=== PATIENT | male | born 1970 | race Caucasian/White ===

== ENCOUNTER 2023-11-30 15:03 | Inpatient (IN) | payer OTHER ==
[2023-11-30] MEDS ORDERED: HEPARIN SODIUM 1,000 UN/ML (10ML VL) IV PRN (15:41)
--- NOTE | 2023-11-30 15:49 | ED ---
SOB HPI - General Chief Complaint: Shortness of Breath Stated Complaint: Sepsis Time Seen by Provider: 11/30/23 15:03 Source: patient, RN notes reviewed Mode of arrival: EMS Limitations: no limitations - History of Present Illness Initial Comments: 53-year-old male transferred here from [facility] he states he initially was diagnosed with influenza 2 days ago came back to the ER today because of shortness of breath and nausea and vomiting and he wasn't feeling well. The symptoms started 6 days ago. Today he was diagnosed with pneumonia a nd a pulmonary embolus. He was brought to emergency department by the transfer ambulance he did have IV heparin running. He states he felt much improved after he was treated with nebulizer treatment at the other facility as well as placed on oxygen. He is reported to have a low oxygen level prior to the treatment. He is a former smoker no reported history of being diagnosed with COPD or asthma . He denies any overt chest pain at this time other complaints modifying factors MD Complaint: shortness of breath Review of Systems ROS Statement: Those systems with pertinent positive or pertinent negative responses have been documented in the HPI. ROS Other: All systems not noted in ROS Statement are negative. Past Medical History Past Medical History: Pneumonia Additional Past Medical History / Comment(s): Influenza A, Covid, History of Any Multi-Drug Resistant Organisms: None Reported Past Surgical History: Hernia Repair Past Psychological History: No Psychological Hx Reported Smoking Status: Former smoker Past Alcohol Use History: Occasional Past Drug Use History: None Reported General Exam - General Exam Comments Initial Comments: This is a well-developed well-nourished awake alert oriented 4 male. He does have oxygen being given at this time. Limitations: no limitations General appearance: alert, in no apparent distress Head exam: Present: atraumatic, normocephalic, normal inspection Eye exam: Present: normal appearance, PERRL, EOMI. Absent: scleral icterus, conjunctival injection, periorbital swelling ENT exam: Present: normal exam, mucous membranes moist Neck exam: Present: normal inspection, full ROM, other. Absent: tenderness, meningismus, lymphadenopathy Respiratory exam: Present: decreased breath sounds (No stridor JVD or bruits), other (Scattered basilar crepitus). Absent: respiratory distress, wheezes, ra les, rhonchi, stridor Cardiovascular Exam: Present: regular rate, normal rhythm, normal heart sounds. Absent: systolic murmur, diastolic murmur, rubs, gallop, clicks GI/Abdominal exam: Present: soft, normal bowel sounds. Absent: distended, tenderness, guarding, rebound, rigid Extremities exam: Present: normal inspection, full ROM, normal capillary refill. Absent: tenderness, pedal edema, joint swelling, calf tenderness Back exam: Present: normal inspection Neurological exam: Present: alert, oriented X3, CN II-XII intact Psychiatric exam: Present: normal affect, normal mood Skin exam: Present: warm, dry, intact, normal color. Absent: rash Course Vital Signs 11/30/23 11/30/23 15:22 15:31 Temperature 98.8 F Pulse Rate 99 Respiratory 18 18 Rate Blood Pressure 130/84 O2 Sat by Pulse 99 Oximetry Medical Decision Making - Medical Decision Making I did review the materials were accompanying the patient upon his arrival. A bloated. Did discuss the case with Taya Brito covering for Dr. Barone the patient will be admitted for inpatient evaluation and treatment bronchospasm hypoxemia pulmonary embolus was a long with pneumonia. A Cephid test is pending at this time.Was pt. sent in by a medical professional or institution (, PA, SENIOR ANDROID SOFTWARE ENGINEER, urgent care, hospital, or shelter...) When possible be specific @ -No Did you speak to anyone other than the patient for history (EMS, parent, family, police, friend...)? What history was obtained from this source @ -Review of old charts sent with the patient Did you review nursing and triage notes (agree or disagree)? Why? @ -I reviewed and agree with nursing and triage notes Were old charts reviewed (outside hosp., previous admission, EMS record, old EKG, old radiological studies, urgent care reports/EKG's, shelter records)? Report findings @ -Charting from [facility] old charts were reviewed Differential Diagnosis (chest pain, altered mental status, abdominal pain women, abdominal pain men, vaginal bleeding, weakness, fever, dyspnea, syncope, headache, dizziness, GI bleed, back pain, seizure, CVA, palpatations, mental health, musculoskeletal)? @ -Pulmonary embolism, bronchospasm, pneumonia, influenza] EKG interpreted by me (3pts min.). @ -As above EKG sent with the patient interpreted by me normal sinus rhythm she is to QA changes rate was 112. Interval 146. QT 318 QTC H49 QRS D 90 6 PMQRS and T 35/49/1 X-rays interpreted by me (1pt min.). @ -Reviewed from other facility CT interpreted by me (1pt min.). @ -Reviewed from other facility U/S interpreted by me (1pt. min.). @ -None done What testing was considered but not performed or refused? (CT, X-rays, U/S, labs)? Why? @ -None What meds were considered but not given or refused? Why? @ -None Did you discuss the management of the patient with other professionals (professionals i.e. DrDominique, PA, SENIOR ANDROID SOFTWARE ENGINEER, lab, RT, psych nurse, manager social work, abrasive band winder, teacher, welfare officer, block and case maker)? Give summary @ -Taya Brito covering for Dr. Barone Was smoking cessation discussed for >3mins.? @ -No Was critical care preformed (if so, how long)? @ -No Were there social determinants of health that impacted care today? How? (Homelessness, low income, unemployed, alcoholism, drug addiction, transportation, low edu. Level, literacy, decrease access to med. care, half-way, rehab)? @ -No Was there de-escalation of care discussed even if they declined (Discuss DNR or withdrawal of care, Hospice)? DNR status @ -No What co-morbidities impacted this encounter? (DM, HTN, Smoking, COPD, CAD, Cancer, CVA, ARF, Chemo, Hep., AIDS, mental health diagnosis, sleep apnea, morbid obesity)? @ -History of Rivera's esophagus, history of colonic polyps, former smoker, recent diagnosis of influenza Was patient admitted / discharged? Hospital course, mention meds given and route, prescriptions, significant lab abnormalities, going to OR and other pertinent info. @ -hospital course patient was admitted for inpatient evaluation and treatment Undiagnosed new problem with uncertain prognosis? @ -No Drug Therapy requiring intensive monitoring for toxicity (Heparin, Nitro, Insulin, Cardizem)? @ -No Were any procedures done? @ -No Diagnosis/symptom? @ -Acute bronchospasm, acute pneumonia, influenza, acute pulmonary embolism, nausea vomiting Acute, or Chronic, or Acute on Chronic? @ -Acute Uncomplicated (without systemic symptoms) or Complicated (systemic symptoms)? @ -default Side effects of treatment? @ -No Exacerbation, Progression, or Severe Exacerbation? @ -Progression Poses a threat to life or bodily function? How? (Chest pain, [place], [place], pneumonia, PE, COPD, DKA, ARF, appy, cholecystitis, CVA, Diverticulitis, Homicidal, Suicidal, threat to staff... and all critical care pts) @ -Potential, PE, acute bronchospasm. Influenza with pneumonia Disposition Clinical Impression: Acute pulmonary embolus, Acute bronchospasm, Pneumonia, Influenza, Nausea & vomiting, Hypoxemia Disposition: ADMITTED IP TO THIS HOSP Condition: Fair Referrals: Augustin Andersen MD [Primary Care Provider] - 1-2 days Decision Date: 11/30/23 Decision Time: 16:16
[2023-11-30] MEDS ORDERED: NALOXONE 0.4 MG/ML 1 ML VIAL IV PRN (16:16)
[2023-11-30] MEDS: HEPARIN SOD,PORK IN 0.45% NACL 25,000 UNIT in 0.45% NACL 1 250ML.BAG IV SCH (16:34)
[2023-11-30 17:29] LABS: Partial Thromboplastin Time 30.2 sec (22.0-30.0); Prothrombin Time 10.5 sec (10.0-12.5)
[2023-11-30] MEDS: SODIUM CHLORIDE 0.9% 1,000 ML IV SCH (17:35)
[2023-11-30] MEDS: ONDANSETRON 4 MG/2 ML VIAL IVP PRN (18:50)
[2023-11-30] MEDS: ACETAMINOPHEN TAB 325 MG TAB PO PRN (18:55)
[2023-11-30] MEDS: IPRATROPIUM-ALBUTEROL 3 ML NEB INHALATION SCH (20:45)
[2023-12-01] MEDS: IPRATROPIUM-ALBUTEROL 3 ML NEB INHALATION SCH ×4 (01:06→18:07)
[2023-12-01] MEDS: SODIUM CHLORIDE 0.9% 1,000 ML IV SCH ×3 (04:45→20:59)
[2023-12-01] MEDS: ONDANSETRON 4 MG/2 ML VIAL IVP PRN ×2 (06:38→14:02)
[2023-12-01] MEDS: ACETAMINOPHEN TAB 325 MG TAB PO PRN ×2 (06:38→14:01)
[2023-12-01] MEDS: HEPARIN SOD,PORK IN 0.45% NACL 25,000 UNIT in 0.45% NACL 1 250ML.BAG IV SCH (08:27)
[2023-12-01] MEDS: PANTOPRAZOLE 40 MG/10 ML VIAL IV SCH (08:27)
--- NOTE | 2023-12-01 15:55 | P.CNPUL ---
History of Present Illness Consult date: 12/01/23 Requesting physician: Yeny Barone Reason for consult: dyspnea, cough, hypoxemia, pulmonary embolism, abnormal CXR/CT Chief complaint: Shortness of breath. History of present illness: Pulmonary consult dated 12/01/2023. 53-year-old male transferred from [facility] with a diagnosis of influenza, diagnosed a few days ago, as well as increasing and worsening shortness of breath, nausea, and vomiting. The patient had symptoms for more than a week, and more recently was diagnosed with possible pneumonia, and pulmonary embolism. He was brought to the emergency department, via transfer ambulance, with IV heparin running. The patient apparently received some breathing treatments at the other hospital, prior to coming to [facility]. Currently, the patient is doing well. He seen today in room 377. He continues on oxygen at 4 L. He is getting saline at 75 mL an hour, and an IV heparin drip. The patient apparently does not have any major medical problem. The patient is a former smoker. He denies any major medical problems. No trauma or surgery. No recent trips or travel. It appears that the pulmonary embolism is likely unprovoked. Home medications were none. Laboratory data here includes a PT of 10.5, INR 1, PTT of 45.4, lactic acid of 1, and his influenza screen was positive. He been having influenza/flulike symptoms for more than a week. EKG showed a sinus tachycardia. The patient apparently had a CT angiogram at the outside facility. Review of Systems REVIEW OF SYSTEMS: CONSTITUTIONAL: Weakness. NEUROLOGIC: [ Negative.] HEENT: [ Negative.] CARDIAC: [Negative.] PULMONARY: Shortness of breath, and cough. GI: Nausea vomiting. : [Negative.] RHEUMATOLOGIC: [ Negative.] IMMUNOLOGIC: [ Negative.] ENDOCRINE: [Negative. ] DERMATOLOGIC: [Negative.] Past Medical History Past Medical History: Pneumonia Additional Past Medical History / Comment(s): Influenza A, Covid, History of Any Multi-Drug Resistant Organisms: None Reported Past Surgical History: Hernia Repair Past Anesthesia/Blood Transfusion Reactions: No Reported Reaction Past Psychological History: No Psychological Hx Reported Smoking Status: Former smoker Past Alcohol Use History: Occasional Past Drug Use History: None Reported Medications and Allergies Home Medications Medication Instructions Recorded Confirmed Type Ibuprofen [Motrin Ib] 800 mg PO Q6H PRN 11/30/23 11/30/23 History Ondansetron Odt [Zofran Odt] 4 mg PO Q8H PRN 11/30/23 11/30/23 History Apixaban [Eliquis Starter Pack 5 - 10 mg PO DIRECTED 30 Days 12/01/23 Rx (for VTE)] #1 each Allergies Allergy/AdvReac Type Severity Reaction Status Date / Time No Known Allergies Allergy Verified 11/30/23 17:41 Physical Exam Osteopathic Statement: *. No significant issues noted on an osteopathic structural exam other than those noted in the History and Physical/Consult. Vitals: Vital Signs Temp Pulse Pulse Resp BP BP Pulse Ox 12/01/23 12:05 84 12/01/23 11:54 85 20 115/68 95 12/01/23 11:48 84 12/01/23 08:00 98.4 F 84 20 110/65 95 12/01/23 05:17 94 12/01/23 05:05 84 12/01/23 03:39 98.3 F 93 18 115/66 96 12/01/23 02:00 20 12/01/23 01:20 82 12/01/23 01:08 80 12/01/23 00:00 98.4 F 66 20 122/79 97 11/30/23 21:17 98 F 96 22 120/72 96 11/30/23 20:56 95 11/30/23 20:52 98 11/30/23 20:45 86 11/30/23 19:05 98 24 122/79 97 11/30/23 18:12 98 18 130/79 98 Intake and Output 12/01/23 12/01/23 12/01/23 06:59 14:59 22:59 Intake Total 401.763 Balance 401.763 Intake: Intake, IV Titration 221.763 Amount Heparin Sod,Pork in 0.45% 221.763 NaCl 25,000 unit In 0.45 % NaCl 1 250ml.bag @ 18 UNITS/KG/HR 13.962 mls/hr IV .[id number] [facility] Rx#: [id number] Oral 180 Other: Voiding Method Toilet Urinal # Voids 1 No acute distress, oriented 3. Nasal O2 in place. No audible wheezing, conversational dyspnea, or use of accessory muscles. HEENT examination is grossly unremarkable. Mucous membranes are moist. No oral lesions. Neck supple. Full range of motion. No adenopathy thyromegaly or neck vein distention. Cardiovascular examination reveals regular rhythm rate. S1-S2 normal. No S3 or S4. No discernible murmur noted. Heart rate 84 bpm. Lungs reveal mild scattered rhonchi. Minimal crackles. No wheezes. 4 L saturation is 95%. Abdomen soft bowel sounds are heard. No masses or tenderness. Extremities are intact. No cyanosis clubbing or edema. Skin is without rash or lesion. Neurologic examination is brief but nonfocal. Results - Laboratory Findings PT/INR, D-dimer PT 10.5 sec (10.0-12.5) 11/30/23 16:31 INR 1.0 (<1.2) 11/30/23 16:31 Abnormal lab findings: Abnormal Labs 11/30/23 11/30/23 11/30/23 16:31 16:31 21:42 APTT 30.2 H 45.4 H Influenza Type A (PCR) Detected A 12/01/23 07:10 APTT 44.4 H Influenza Type A (PCR) Assessment and Plan Assessment: Recent diagnosis of pulmonary embolism, unprovoked. Relatively recent diagnosis of influenza. Prior history of tobacco use. Plan: Plan dated 12/01/2023. Currently, the patient is receiving IV heparin, and saline at 75 mL an hour. The patient's also getting oxygen at 4 L. No need to start Tamiflu, as the patient has had symptoms for a number of days now, and he is beyond the window, to initiate Tamiflu therapy. The patient's also receiving breathing treatments which are reasonable. We will continue to follow make recommendations along the way. Prognosis is guarded. Likely a day or so, the patient can be started on a factor X a inhibitor. Because this is an unprovoked blood clot, the patient should be treated for 6 months. No additional recommendations are made. We will need a follow-up CT angiogram in about 8-10 weeks. Prognosis is thought to be generally good. Time with Patient: Greater than 30
[2023-12-01] MEDS ORDERED: ALBUTEROL NEBULIZED 2.5 MG/3 ML INHALATION PRN (15:58)
--- NOTE | 2023-12-01 16:00 | P.HPIM ---
History of Present Illness H&P Date: 12/01/23 This is a 53 year old male who presented to the emergency department as a transfer from [facility] in [place] for being positive for influenza and also found to have a right lobe pulmonary embolism and was sent here on heparin for further pulmonary evaluation. Patient reports he follows with Dr. Andersen out of [place] with no significant past medical history other than being a former smoker at least 5-6 years ago and had Covid 2 years ago. Patient was placed on oxygen with hypoxia at the other facility and sent here for further evaluation. Patient reports not eating very much and has been progressively becoming more weak and experiencing shortness of breath which brought him back to the ER. Will consult pulmonary as there were also concerns for possible pneumonia while at the other hospital and was given a dose of antibiotics empirically. 2-D echo was ordered and pending. Patient with significant weakness will have physical therapy evaluate the patient as well. Review Of Systems: Constitutional: No fever, no chills, no night sweats. No weight change. Reports of generalized weakness, fatigue or lethargy. No daytime sleepiness. EENT: No headache. No blurred vision or double vision, no loss of vision. No loss of Hearing, no ringing in the ears, no dizziness. No nasal drainage or congestion. No epistaxis. No sore throat. Lungs:Reports of shortness of breath, cough, no sputum production. No wheezing. Cardiovascular: No chest pain, no lower extremity edema. No palpitations. No paroxysmal nocturnal dyspnea. No orthopnea. No lightheadedness or dizziness. No syncopal episodes. Abdominal: No abdominal pain. No nausea, vomiting. No diarrhea. No constipation. No bloody or tarry stools.. No loss of appetite. Genitourinary: No dysuria, increased frequency, urgency. No urinary retention. Musculoskeletal: No myalgias. No muscle weakness, no gait dysfunction, no frequent falls. No back pain. No neck pain. Integumentary: No wounds, no lesions. No rash or pruritus. No unusual bruising. No change in hair or nails. Neurologic: No aphasia. No facial droop. No change in mentation. No head injury. No headache. No paralysis. No paresthesia. Psychiatric: No depression. No anxiety. No mood swings. Endocrine: No abnormal blood sugars. No weight change. No excessive sweating or thirst. No cold intolerance. PHYSICAL EXAMINATION: GENERAL: The patient is alert and oriented x4, Well developed, well nourished. HEENT: Pupils are round and equally reacting to light. EOMI. no scleral icterus. No conjunctival pallor. Normocephalic, atraumatic. No pharyngeal erythema. No thyromegaly. CARDIOVASCULAR: S1 and S2 muffled PULMONARY: diminished breath sounds bilaterally otherwise clear to auscultation with no wheezing or rhonchi noted. ABDOMEN: soft. Nontender on exam. non-distended, normoactive bowel sounds. No palpable organomegaly. MUSCULOSKELETAL: No joint swelling or deformity. EXTREMITIES: No cyanosis, clubbing, or pedal edema. NEUROLOGICAL: Gross neurological examination did not reveal any focal deficits. Diffuse weakness SKIN: No rashes. Assessment: Shortness of breath with acute hypoxemic respiratory failure, multifactorial secondary to new onset pulmonary embolism in the right lobe as well as influenza A infection Acute influenza A infection Former smoker GI prophylaxis DVT prophylaxis Full code Plan: Recommend to continue with current medications and management along with supportive care. Patient was transferred from another facility in [place] on IV heparin for acute right lower lobe pulmonary embolism that is new Patient also found to have acute influenza infection 2 days prior and was in the ER received IV hydration reported feeling better and was sent home. Patient returned back with increased shortness of breath and feeling unwell along with hypoxia requiring 2-4 L of oxygen Patient does not wear any oxygen outpatient does not have any significant medical history. Patient reports to smoking although quit over 5 years ago Patient is not vaccinated and reports to having no significant medical problems Will consult pulmonary as there was concern for possible pneumonia at the other hospital and awaiting records to upload Will obtain 2-D echo Follow-up labs in a.m. Patient with significant weakness will have PT/OT therapy evaluate the patient Follow-up chest x-ray ordered for a.m. Wean FiO2 as tolerated Will also encourage incentive spirometer use at least 10 times every hour while awake The impression and plan of care has been dictated by Taya Singletary, nurse practitioner as directed. Dr. Fela MD I have performed a history and examination and MDM of this patient, discussed the same with the dictator, and agree with the dictator's assessment and plan as written ,documented as a scribe. Based on total visit time, I have performed more than 50% of the visit. Any additional findings or plans will be noted. Past Medical History Past Medical History: Pneumonia Additional Past Medical History / Comment(s): Influenza A, Covid, History of Any Multi-Drug Resistant Organisms: None Reported Past Surgical History: Hernia Repair Past Anesthesia/Blood Transfusion Reactions: No Reported Reaction Past Psychological History: No Psychological Hx Reported Smoking Status: Former smoker Past Alcohol Use History: Occasional Past Drug Use History: None Reported Medications and Allergies Home Medications Medication Instructions Recorded Confirmed Type Ibuprofen [Motrin Ib] 800 mg PO Q6H PRN 11/30/23 11/30/23 History Ondansetron Odt [Zofran Odt] 4 mg PO Q8H PRN 11/30/23 11/30/23 History Apixaban [Eliquis Starter Pack 5 - 10 mg PO DIRECTED 30 Days 12/01/23 Rx (for VTE)] #1 each Allergies Allergy/AdvReac Type Severity Reaction Status Date / Time No Known Allergies Allergy Verified 11/30/23 17:41 Physical Exam Vitals: Vital Signs Temp Pulse Pulse Resp BP BP Pulse Ox 12/01/23 05:17 94 12/01/23 05:05 84 12/01/23 03:39 98.3 F 93 18 115/66 96 12/01/23 02:00 20 12/01/23 01:20 82 12/01/23 01:08 80 12/01/23 00:00 98.4 F 66 20 122/79 97 11/30/23 21:17 98 F 96 22 120/72 96 11/30/23 20:56 95 11/30/23 20:52 98 11/30/23 20:45 86 11/30/23 19:05 98 24 122/79 97 11/30/23 18:12 98 18 130/79 98 11/30/23 15:31 18 11/30/23 15:22 98.8 F 99 18 130/84 99 Intake and Output 11/30/23 12/01/23 12/01/23 22:59 06:59 14:59 Intake Total 401.763 Balance 401.763 Intake: Intake, IV Titration 221.763 Amount Heparin Sod,Pork in 0.45% 221.763 NaCl 25,000 unit In 0.45 % NaCl 1 250ml.bag @ 18 UNITS/KG/HR 13.962 mls/hr IV .[id number] [facility] Rx#: [id number] Oral 180 Other: # Voids 1 Weight 77.564 kg Results Labs: Abnormal Lab Results - Last 24 Hours (Table) 11/30/23 11/30/23 11/30/23 Range/Units 16:31 16:31 21:42 APTT 30.2 H 45.4 H (22.0-30.0) sec Influenza Type A (PCR) Detected A (Not Detectd) 12/01/23 Range/Units 07:10 APTT 44.4 H (22.0-30.0) sec Influenza Type A (PCR) (Not Detectd) Thrombosis Risk Factor Assmnt - DVT/VTE Prophylaxis DVT/VTE Prophylaxis: Mechanical Prophylaxis ordered - Choose All That Apply Any of the Below Risk Factors Present?: Yes Each Factor Represents 1 point: Age 41-60 years Each Risk Factor Represents 3 Points: History of DVT/PE Thrombosis Risk Factor Assessment Total Risk Factor Score: 4 Thrombosis Risk Factor Assessment Level: Moderate Risk Assessment and Plan Time with Patient: Greater than 30
--- NOTE | 2023-12-01 17:08 | CA ---
Transthoracic Echo Report Name: Orlin Aleger Age: 53 Gender: M : 1970 Exam Date: 12/01/2023 15:09 Exam Location: [place] [facility] Ht (in): 70 Wt (lb): 171 Ordering Physician: Taya Singletary Attending/Referring Phys: [place] Luisa Watson RDCS Procedure CPT: Indications: NEW PE, SOB Cardiac Hx: Technical Quality: Good Contrast 1: Total Dose (mL): Contrast 2: Total Dose (mL): MEASUREMENTS (Male / Female) Normal Values 2D ECHO LV Diastolic Diameter PLAX 5.0 cm 4.2 - 5.9 / 3.9 - 5.3 cm LV Systolic Diameter PLAX 3.5 cm IVS Diastolic Thickness 0.9 cm 0.6 - 1.0 / 0.6 - 0.9 cm LVPW Diastolic Thickness 0.9 cm 0.6 - 1.0 / 0.6 - 0.9 cm LV Relative Wall Thickness 0.3 RV Internal Dim ED PLAX 3.9 cm LA Systolic Diameter LX 4.2 cm 3.0 - 4.0 / 2.7 - 3.8 cm LV Diastolic Volume MOD 4C 132.3 cm??? LV Systolic Volume MOD 4C 52.9 cm??? LV Ejection Fraction MOD 4C 60.0 % LV Cardiac Index MOD 4C 3113.6 cm???/min???m??? LV Diastolic Length 4C 8.3 cm LV Systolic Length 4C 6.5 cm LV Diastolic Volume MOD 2C 124.9 cm??? LV Systolic Volume MOD 2C 47.1 cm??? LV Ejection Fraction MOD 2C 62.3 % LV Cardiac Index MOD 2C 3052.8 cm???/min???m??? LV Diastolic Length 2C 8.2 cm LV Systolic Length 2C 6.8 cm LA Volume 95.0 cm??? 18 - 58 / 22 - 52 cm??? LA Volume Index 48.4 cm???/m??? 16 - 28 cm???/m??? M-MODE Aortic Root Diameter MM 4.1 cm AV Cusp Separation MM 3.0 cm DOPPLER AV Peak Velocity 121.5 cm/s AV Peak Gradient 5.9 mmHg MV Area PHT 3.7 cm??? Mitral E Point Velocity 99.8 cm/s Mitral A Point Velocity 56.2 cm/s Mitral E to A Ratio 1.8 MV Deceleration Time 206.6 ms MV E' Velocity 12.4 cm/s Mitral E to MV E' Ratio 8.1 TR Peak Velocity 255.2 cm/s TR Peak Gradient 26.1 mmHg Right Ventricular Systolic Press 31.1 mmHg FINDINGS Left Ventricle Left ventricular ejection fraction is estimated at 55-60 %. Left ventricular cavity size normal. Left ventricular wall thickness normal. Right Ventricle Right ventricular dilatation. Right ventricular systolic pressure within normal limits. Right Atrium Right atrial dilatation. Left Atrium Mildly increased left atrial diameter. Severely increased left atrial volume. Mildly increased left atrial area. Mitral Valve Structurally normal mitral valve. Mild mitral regurgitation. Aortic Valve Trileaflet aortic valve. No aortic valve stenosis or regurgitation. Tricuspid Valve Structurally normal tricuspid valve. Mild tricuspid regurgitation. Pulmonic Valve Structurally normal pulmonic valve. No pulmonic regurgitation. Pericardium No pericardial effusion. Aorta Moderate aortic dilatation at the level of the sinuses of valsalva 41 mm CONCLUSIONS Normal LV function Mild mitral regurgitation Mildly dilated aortic root Previewed by: Dr. Ignacio Thurman MD (Electronically Signed) Final Date: 01 December 2023 17:08
[2023-12-02] MEDS: HEPARIN SOD,PORK IN 0.45% NACL 25,000 UNIT in 0.45% NACL 1 250ML.BAG IV SCH (00:42)
[2023-12-02] MEDS: ONDANSETRON 4 MG/2 ML VIAL IVP PRN ×2 (04:46→10:53)
[2023-12-02] MEDS: IPRATROPIUM-ALBUTEROL 3 ML NEB INHALATION SCH ×4 (08:55→20:53)
[2023-12-02] MEDS: SODIUM CHLORIDE 0.9% 1,000 ML IV SCH (09:04)
[2023-12-02] MEDS: PANTOPRAZOLE 40 MG/10 ML VIAL IV SCH (09:04)
[2023-12-02 09:27] VITALS: RESP 20
[2023-12-02 09:45] LABS: Basophils # (A) 0.1 k/uL (0-0.2); Basophils % (A) 0 %; Eosinophils % (A) 0 %; HCT 38.8 % (39.0-53.0); HGB 12.7 gm/dL (13.0-17.5); Lymphocytes # (A) 1.9 k/uL (1.0-4.8); Lymphocytes % (A) 17 %; MCH 30.7 pg (25.0-35.0); MCHC 32.6 g/dL (31.0-37.0); MCV 94.1 fL (80.0-100.0); Mean Platelet Volume 8.2; Monocytes # (A) 0.6 k/uL (0-1.0); Monocytes % (A) 5 %; Neutrophils # (A) 8.2 k/uL (1.3-7.7); Neutrophils % (A) 74 %; Platelet Count 296 k/uL (150-450); RBC 4.12 m/uL (4.30-5.90)
[2023-12-02 09:54] LABS: African American GFR (CKD) >90 (>60 ml/min/1.73 sqM); Anion Gap 12 mmol/L; Blood Urea Nitrogen 10 mg/dL (9-20); Calcium 8.3 mg/dL (8.4-10.2); Carbon Dioxide 19 mmol/L (22-30); Chloride 107 mmol/L (98-107); Glucose 103 mg/dL (74-99); Magnesium 2.1 mg/dL (1.6-2.3); Non-African American GFR(CKD) >90 (>60 ml/min/1.73 sqM); Potassium 3.8 mmol/L (3.5-5.1); Sodium 138 mmol/L (137-145)
[2023-12-02] MEDS: Apixaban Initiation Dose--VTE 5 MG TAB PO SCH ×2 (09:57→20:35)
--- NOTE | 2023-12-02 12:33 | XR ---
EXAMINATION TYPE: XR chest 1V portable DATE OF EXAM: 12/02/2023 Comparison: 11/30/2023 Clinical History: 53-year-old male shortness of breath, flu, PE Findings: Heart upper limits are normal in size. Patchy interstitial densities bilaterally persist and show sli ght worsening. Calcified right hilar lymph nodes compatible with prior granulomatous disease. Calcifi ed granuloma right midlung. Mild hyperinflation. Impression: Slight worsening in bilateral COVID infiltrates/atypical pneumonias. COPD with mild emphysema.
[2023-12-02] MEDS ORDERED: METOCLOPRAMIDE 5 MG/ML 2 ML VIAL IVP PRN (13:20)
[2023-12-02] MEDS: DEXAMETHASONE SOD PHOSPHATE 10 MG/ML 1 ML VIAL IVP SCH (13:22)
--- NOTE | 2023-12-02 13:58 | P.PN ---
Subjective Progress Note Date: 12/02/23 Principal diagnosis: Shortness of breath, and weakness. Pulmonary consult dated 12/01/2023. 53-year-old male transferred from [facility] with a diagnosis of influenza, diagnosed a few days ago, as well as increasing and worsening shortness of breath, nausea, and vomiting. The patient had symptoms for more than a week, and more recently was diagnosed with possible pneumonia, and pulmonary embolism. He was brought to the emergency department, via transfer ambulance, with IV heparin running. The patient apparently received some breathing treatments at the other hospital, prior to coming to [facility]. Currently, the patient is doing well. He seen today in room 377. He continues on oxygen at 4 L. He is getting saline at 75 mL an hour, and an IV heparin d rip. The patient apparently does not have any major medical problem. The patient is a former smoker. He denies any major medical problems. No trauma or surgery. No recent trips or travel. It appears that the pulmonary embolism is likely unprovoked. Home medications were none. Laboratory data here includes a PT of 10.5, INR 1, PTT of 45.4, lactic acid of 1, and his influenza screen was positive. He been having influenza/flulike symptoms for more than a week. EKG showed a sinus tachycardia. The patient apparently had a CT angiogram at the outside facility. Progress note dated 12/02/2023. The patient is seen today in room 377. He was admitted with a diagnosis of influenza infection, pulmonary embolism. Currently, the patient's on 4 L of oxygen. He is getting saline at 75 mL an hour. The patient's IV heparin could be changed to a factor X a inhibitor. We will check a pro-calcitonin level. White count is 11, hemoglobin 12.7, hematocrit 33.8, platelet count was normal. PTT was 31.9. Sodium 138, potassium 3.8, chlorides 107, CO2 19, anion gap 12, BUN 10, and creatinine 0.73. Chest x-ray shows bilateral interstitial infiltrates. Objective - Vital Signs Vital signs: Vital Signs Temp 98.5 F 12/02/23 08:57 Pulse 73 12/02/23 13:18 Resp 20 12/02/23 11:00 BP 126/71 12/02/23 11:00 Pulse Ox 93 L 12/02/23 11:00 FiO2 Intake & Output 12/01/23 12/02/23 12/02/23 18:59 06:59 18:59 Intake Total 1061.763 766.883 0 Balance 1061.763 766.883 0 Intake: Intake, IV Titration 221.763 226.883 Amount Heparin Sod,Pork in 0.45% 221.763 226.883 NaCl 25,000 unit In 0.45 % NaCl 1 250ml.bag @ 18 UNITS/KG/HR 13.962 mls/hr IV .[id number] [facility] Rx#: [id number] Oral [id number] 0 Other: Voiding Method Toilet Toilet Toilet Urinal Urinal Urinal # Voids 3 2 1 - Exam No acute distress, oriented 3. Nasal O2 in place. No audible wheezing, conversational dyspnea, or use of accessory muscles. HEENT examination is grossly unremarkable. Mucous membranes are moist. No oral lesions. Neck supple. Full range of motion. No adenopathy thyromegaly or neck vein distention. Cardiovascular examination reveals regular rhythm rate. S1-S2 normal. No S3 or S4. No discernible murmur noted. Heart rate 73 bpm. Lungs reveal mild scattered rhonchi. Minimal crackles. No wheezes. 4 L saturation is 94 %. Abdomen soft bowel sounds are heard. No masses or tenderness. Extremities are intact. No cyanosis clubbing or edema. Skin is without rash or lesion. Neurologic examination is brief but nonfocal. - Labs CBC & Chem 7: 12/02/23 09:16 12/02/23 09:16 Labs: Abnormal Lab Results - Last 24 Hours (Table) 12/02/23 12/02/23 12/02/23 Range/Units 09:16 09:16 09:16 WBC 11.0 H (3.8-10.6) k/uL RBC 4.12 L (4.30-5.90) m/uL Hgb 12.7 L (13.0-17.5) gm/dL Hct 38.8 L (39.0-53.0) % Neutrophils # 8.2 H (1.3-7.7) k/uL APTT 31.9 H (22.0-30.0) sec Carbon Dioxide 19 L (22-30) mmol/L Glucose 103 H (74-99) mg/dL Calcium 8.3 L (8.4-10.2) mg/dL Assessment and Plan Assessment: Recent diagnosis of pulmonary embolism, unprovoked. Relatively recent diagnosis of influenza. Prior history of tobacco use. Plan: Plan dated 12/01/2023. Currently, the patient is receiving IV heparin, and saline at 75 mL an hour. The patient's also getting oxygen at 4 L. No need to start Tamiflu, as the patient has had symptoms for a number of days now, and he is beyond the window, to initiate Tamiflu therapy. The patient's also receiving breathing treatments which are reasonable. We will continue to follow make recommendations along the way. Prognosis is guarded. Likely a day or so, the patient can be started on a factor X a inhibitor. Because this is an unprovoked blood clot, the patient should be treated for 6 months. No additional recommendations are made. We will need a follow-up CT angiogram in about 8-10 weeks. Prognosis is thought to be generally good. Plan dated 12/02/2023. The patient is seen today in room 377. He is on oxygen at 4 L. The patient's getting saline at 75 mL an hour. We will check a pro-calcitonin level, before w e order antibiotics. His heparin, could be converted to a factor X a inhibitor, or alternatively, the patient could get Coumadin. Additional recommendations and suggestions are forthcoming. The patient will need a follow-up CT angiogram in 8-10 weeks. No additional recommendations are made at this time. A pro- calcitonin level is pending. Time with Patient: Less than 30
[2023-12-02 16:25] LABS: Glucose,Whole Blood 97 mg/dL (70-110)
[2023-12-02 20:37] LABS: Glucose,Whole Blood 148 mg/dL (70-110)
[2023-12-03 06:17] LABS: Glucose,Whole Blood 134 mg/dL (70-110)
--- NOTE | 2023-12-03 07:03 | P.PN ---
Subjective Progress Note Date: 12/02/23 This is a 53 year old male who presented to the emergency department as a transfer from [facility] in [place] for being positive for influenza and also found to have a right lobe pulmonary embolism and was sent here on heparin for further pulmonary evaluation. Patient reports he follows with Dr. Andersen out of [place] with no significant past medical history other than being a former smoker at least 5-6 years ago and had Covid 2 years ago. Patient was placed on oxygen with hypoxia at the other facility and sent here for further evaluation. Patient reports not eating very much and has been progressively becoming more weak and experiencing shortness of breath which brought him back to the ER. Will consult pulmonary as there were also concerns for possible pneumonia while at the other hospital and was given a dose of antibiotics empirically. 2-D echo was ordered and pending. Patient with significant weakness will have physical therapy evaluate the patient as well. 12/02/2023 Patient is seen in follow-up this morning continues to be on 3-4 L via nasal cannula and per nursing staff desats quickly into the low 80s on room air. Patient does not normally wear oxygen outpatient. Patient with acute influenza A as well as right lobe pulmonary embolism. Patient was continued on IV heparin and has transitioned to oral eliquis . Follow-up chest x-ray shows some patchy densities and patient along with family are concerned about pneumonia. Will obtain pro-calcitonin. Repeat labs pending for a.m. Patient continues to report nausea and not tolerating much oral intake and will continue Zofran and Reglan as needed. Patient was evaluated by physical therapy and will generally weak patient is up and moving and walking to the bathroom and back. Encourage increased intake and activity as tolerated. Wean FiO2 as tolerated. Will discuss with case management about the possibility of requiring home oxygen. at the bedside reports he had home oxygen when he was discharged from [facility] 2 years ago for a few weeks. Review of systems: Constitutional: No reports of fatigue, fever, or chills Cardiovascular: No reports of chest pain or palpitations Respiratory: reports of shortness of breath GI: reports of nausea that persists, no vomiting, or diarrhea : No reports of dysuria or retention Neurovascular: reports of generalized weakness All medications have been reviewed PHYSICAL EXAMINATION: GENERAL: The patient is alert and oriented x4, Well developed, well nourished. HEENT: Pupils are round and equally reacting to light. EOMI. no scleral icterus. No conjunctival pallor. Normocephalic, atraumatic. No pharyngeal erythema. No thyromegaly. CARDIOVASCULAR: S1 and S2 muffled PULMONARY: diminished breath sounds bilaterally otherwise clear to auscultation with no wheezing or rhonchi noted. ABDOMEN: soft. Nontender on exam. non-distended, normoactive bowel sounds. No palpable organomegaly. MUSCULOSKELETAL: No joint swelling or deformity. EXTREMITIES: No cyanosis, clubbing, or pedal edema. NEUROLOGICAL: Gross neurological examination did not reveal any focal deficits. Diffuse weakness SKIN: No rashes. Assessment: Shortness of breath with acute hypoxemic respiratory failure, multifactorial secondary to new onset pulmonary embolism in the right lobe as well as influenza A infection Acute influenza A infection Former smoker GI prophylaxis DVT prophylaxis Full code Plan: Recommend to continue with current medications and management along with supportive care. Patient was transferred from another facility in [place] on IV heparin for acute right lower lobe pulmonary embolism that is new. IV heparin has been discontinued and patient has been started on eliquis grams twice daily and will titrate down to 5 mg twice daily thereafter a week Patient also found to have acute influenza infection 2 days prior and was in the ER received IV hydration reported feeling better and was sent home. Patient returned back with increased shortness of breath and feeling unwell along with hypoxia requiring 2-4 L of oxygen. Patient currently on 3-4 L and discuss with patient along with nursing staff about weaning FiO2 as tolerated. Nursing staff reports oxygen saturation drops into the 80s on room air. Discussed with case management about the possible need for home oxygen and will perform home O2 eval. reports when he had Covid 2 years ago he was sent home for several weeks on oxygen Patient does not wear any oxygen outpatient does not have any significant medical history. Patient reports to smoking although quit over 5 years ago Patient is not vaccinated and reports to having no significant medical problems Pulmonary following an pro-calcitonin was ordered and pending 2-D echo within normal limits Follow-up labs in a.m. Patient was evaluated by PT/OT therapy and did well just generally weak. Encouraged increased activity as tolerated Will also encourage incentive spirometer use at least 10 times every hour while awake Will discuss further with pulmonary about discharge planning and if patient is r equiring antibiotics as they were concerned about a pneumonia at the other hospital and did receive antibiotics while there. Possible discharge planning in the next 24-48 hours patient is weaned from oxygen and cleared by pulmonary The impression and plan of care has been dictated by Taya Singletary, nurse practitioner as directed. Dr. Fela MD I have performed a history and examination and MDM of this patient, discussed the same with the dictator, and agree with the dictator's assessment and plan as written ,documented as a scribe. Based on total visit time, I have performed more than 50% of the visit. Any additional findings or plans will be noted. Objective - Vital Signs Vital signs: Vital Signs Temp 98.5 F 12/02/23 08:57 Pulse 64 12/02/23 12:31 Resp 20 12/02/23 11:00 BP 126/71 12/02/23 11:00 Pulse Ox 93 L 12/02/23 11:00 FiO2 Intake & Output 12/01/23 12/02/23 12/02/23 18:59 06:59 18:59 Intake Total 1061.763 766.883 0 Balance 1061.763 766.883 0 Intake: Intake, IV Titration 221.763 226.883 Amount Heparin Sod,Pork in 0.45% 221.763 226.883 NaCl 25,000 unit In 0.45 % NaCl 1 250ml.bag @ 18 UNITS/KG/HR 13.962 mls/hr IV .[id number] [facility] Rx#: [id number] Oral [id number] 0 Other: Voiding Method Toilet Toilet Toilet Urinal Urinal Urinal # Voids 3 2 1 - Labs CBC & Chem 7: 12/02/23 09:16 12/02/23 09:16 Labs: Abnormal Lab Results - Last 24 Hours (Table) 12/02/23 12/02/23 12/02/23 Range/Units 09:16 09:16 09:16 WBC 11.0 H (3.8-10.6) k/uL RBC 4.12 L (4.30-5.90) m/uL Hgb 12.7 L (13.0-17.5) gm/dL Hct 38.8 L (39.0-53.0) % Neutrophils # 8.2 H (1.3-7.7) k/uL APTT 31.9 H (22.0-30.0) sec Carbon Dioxide 19 L (22-30) mmol/L Glucose 103 H (74-99) mg/dL Calcium 8.3 L (8.4-10.2) mg/dL
[2023-12-03] MEDS: DEXAMETHASONE SOD PHOSPHATE 10 MG/ML 1 ML VIAL IVP SCH (09:00)
[2023-12-03] MEDS: SODIUM CHLORIDE 0.9% 1,000 ML IV SCH (09:01)
[2023-12-03] MEDS: PANTOPRAZOLE 40 MG/10 ML VIAL IV SCH (09:01)
[2023-12-03] MEDS: Apixaban Initiation Dose--VTE 5 MG TAB PO SCH (09:01)
[2023-12-03 09:14] VITALS: TEMP 98.1
[2023-12-03] MEDS: IPRATROPIUM-ALBUTEROL 3 ML NEB INHALATION SCH ×3 (09:20→16:02)
[2023-12-03 11:37] LABS: Glucose,Whole Blood 188 mg/dL (70-110)
[2023-12-03 11:47] VITALS: BP 128/61
[2023-12-03 13:07] LABS: African American GFR (CKD) >90 (>60 ml/min/1.73 sqM); Anion Gap 10 mmol/L; Blood Urea Nitrogen 11 mg/dL (9-20); Calcium 8.4 mg/dL (8.4-10.2); Carbon Dioxide 21 mmol/L (22-30); Chloride 109 mmol/L (98-107); Glucose 142 mg/dL (74-99); Magnesium 2.2 mg/dL (1.6-2.3); Non-African American GFR(CKD) >90 (>60 ml/min/1.73 sqM); Potassium 3.5 mmol/L (3.5-5.1); Sodium 140 mmol/L (137-145)
[2023-12-03 13:29] LABS: Basophils % (A) 0 %; Eosinophils % (A) 0 %; HCT 35.6 % (39.0-53.0); HGB 12.3 gm/dL (13.0-17.5); Lymphocytes # (A) 1.2 k/uL (1.0-4.8); Lymphocytes % (A) 8 %; MCH 31.3 pg (25.0-35.0); MCHC 34.4 g/dL (31.0-37.0); MCV 90.9 fL (80.0-100.0); Mean Platelet Volume 8.6; Monocytes # (A) 1.1 k/uL (0-1.0); Monocytes % (A) 7 %; Neutrophils # (A) 13.1 k/uL (1.3-7.7); Neutrophils % (A) 83 %; Platelet Count 376 k/uL (150-450); RBC 3.92 m/uL (4.30-5.90); RDW 13.3 % (11.5-15.5); WBC 15.7 k/uL (3.8-10.6)
[2023-12-03 13:36] VITALS: PULSE 92
--- NOTE | 2023-12-03 13:47 | P.PN ---
Subjective Progress Note Date: 12/03/23 53-year-old male transferred from [facility] with a diagnosis of influenza, diagnosed a few days ago, as well as increasing and worsening shortness of breath, nausea, and vomiting. The patient had symptoms for more than a week, and more recently was diagnosed with possible pneumonia, and pu lmonary embolism. He was brought to the emergency department, via transfer ambulance, with IV heparin running. The patient apparently received some breathing treatments at the other hospital, prior to coming to [facility]. Currently, the patient is doing well. He seen today in room 377. He continues on oxygen at 4 L. He is getting saline at 75 mL an hour, and an IV heparin drip. The patient apparently does not have any major medical problem. The patient is a former smoker. He denies any major medical problems. No trauma or surgery. No recent trips or travel. It appears that the pulmonary embolism is likely unprovoked. Home medications were none. Laboratory data here includes a PT of 10.5, INR 1, PTT of 45.4, lactic acid of 1, and his influenza screen was positive. He been having influenza/flulike symptoms for more than a week. EKG showed a sinus tachycardia. The patient apparently had a CT angiogram at the outside facility. Progress note dated 12/02/2023. The patient is seen today in room 377. He was admitted with a diagnosis of influenza infection, pulmonary embolism. Currently, the patient's on 4 L of oxygen. He is getting saline at 75 mL an hour. The patient's IV heparin could be changed to a factor X a inhibitor. We will check a pro-calcitonin level. White count is 11, hemoglobin 12.7, hematocrit 33.8, platelet count was normal. PTT was 31.9. Sodium 138, potassium 3.8, chlorides 107, CO2 19, anion gap 12, BUN 10, and creatinine 0.73. Chest x-ray shows bilateral interstitial infiltrates. The patient is seen today 12/03/2023 in follow-up on the selective care unit. He's been up ambulating his in his room. No worsening shortness of breath, cou gh or congestion. No hemoptysis. He is maintaining O2 saturations in the 90s on 2 L/m per nasal cannula. White count 15.7. Hemoglobin 12.3. Platelets 376. Sodium 140. Potassium 3.5. Bicarb 21. BUN 11. Creatinine 0.75. Glucose 142. He remains on bronchodilators. Anticoagulated with L a class. Objective - Vital Signs Vital signs: Vital Signs Temp 98.1 F 12/03/23 08:56 Pulse 92 12/03/23 13:14 Resp 20 12/03/23 11:00 BP 128/61 12/03/23 11:00 Pulse Ox 93 L 12/03/23 11:00 FiO2 Intake & Output 12/02/23 12/03/23 12/03/23 18:59 06:59 18:59 Intake Total 240 240 Balance 240 240 Intake: Oral 240 240 Other: Voiding Method Toilet Toilet Toilet Urinal Urinal Urinal # Voids 1 1 2 - Exam GENERAL EXAM: Alert, active, pleasant 53-year-old male, on 2 L nasal cannula, comfortable in no apparent distress. HEAD: Normocephalic. EYES: Normal reaction of pupils, equal size. NOSE: Clear with pink turbinates. THROAT: No erythema or exudates. NECK: No masses, no JVD. CHEST: No chest wall deformity. LUNGS: Equal air entry with no crackles, wheeze, rhonchi or dullness. CVS: S1 and S2 normal with no audible murmur, regular rhythm. ABDOMEN: No hepatosplenomegaly, normal bowel sounds, no guarding or rigidity. SPINE: No scoliosis or deformity SKIN: No rashes CENTRAL NERVOUS SYSTEM: No focal deficits, tone is normal in all 4 extremities. EXTREMITIES: There is no peripheral edema. No clubbing, no cyanosis. Peripheral pulses are intact. - Labs CBC & Chem 7: 12/03/23 12:17 12/03/23 12:17 Labs: Abnormal Lab Results - Last 24 Hours (Table) 12/02/23 12/02/23 12/03/23 Range/Units 09:16 20:36 06:16 WBC (3.8-10.6) k/uL RBC (4.30-5.90) m/uL Hgb (13.0-17.5) gm/dL Hct (39.0-53.0) % Neutrophils # (1.3-7.7) k/uL Monocytes # (0-1.0) k/uL Chloride (98-107) mmol/L Carbon Dioxide (22-30) mmol/L Glucose (74-99) mg/dL POC Glucose (mg/dL) 148 H 134 H (70-110) mg/dL Procalcitonin 0.54 H (0.02-0.09) ng/mL 12/03/23 12/03/23 12/03/23 Range/Units 11:36 12:17 12:17 WBC 15.7 H (3.8-10.6) k/uL RBC 3.92 L (4.30-5.90) m/uL Hgb 12.3 L (13.0-17.5) gm/dL Hct 35.6 L (39.0-53.0) % Neutrophils # 13.1 H (1.3-7.7) k/uL Monocytes # 1.1 H (0-1.0) k/uL Chloride 109 H (98-107) mmol/L Carbon Dioxide 21 L (22-30) mmol/L Glucose 142 H (74-99) mg/dL POC Glucose (mg/dL) 188 H (70-110) mg/dL Procalcitonin (0.02-0.09) ng/mL Assessment and Plan Assessment: Recent diagnosis of pulmonary embolism, unprovoked. Relatively recent diagnosis of influenza. Prior history of tobacco use. Plan: The patient was seen and evaluated Cleared for discharge from the pulmonary standpoint Evaluate for possible home oxygen Continue on Eliquis for at least 6 months Follow-up in our office in 1 week We will plan for a follow-up computed tomography scan in 8-12 weeks I have personally seen and examined the patient, performed the documentation and the assessment and plan as written. Number of minutes spent on the visit: 10.
--- NOTE | 2023-12-04 06:41 | P.DS ---
Providers Date of admission: 11/30/23 16:16 Attending physician: Yeny Barone Consults: 12/01/23 11:25 Consult Physician Urgent Consulting Provider: Arvin Domínguez Consult Reason/Comments: new pe, on hep, influenza, pna Do you want consulting provider notified?: Yes Primary care physician: Augustin Andersen MD Hospital Course: Diagnoses: Shortness of breath with acute hypoxemic respiratory failure, multifactorial secondary to new onset pulmonary embolism in the right lobe as well as influenza A infection Acute influenza A infection acute hypoxic respiratory failure, secondary to above. Stable. Patient is discharged on oxygen Former smoker GI prophylaxis DVT prophylaxis Full code Hospital course: This is a 53 year old male who presented to the emergency department as a transfer from [facility] in [place] for being positive for influenza Aa and also found to have a right lobe pulmonary embolism and was sent here on heparin for further pulmonary evaluation. Echocardiogram showed ejection fraction of 55-60% with normal right ventricular strain Patient also treated with a breathing treatment of bronchodilator and he showed interval improvement in his symptoms. Today patient was fully awake and oriented, no respiratory distress, no chest pain dyspnea or coughing. No hemoptysis. No other symptoms related to his GI or urinary tract. No new neurological symptoms. No other new symptoms Patient was switched to Eliquis 10 mg twice daily 7 days and then 5 mg twice a day. Patient was eager to go home today. at bedside was a nurse. Patient was cleared for discharge by pulmonary sedative. Patient will be discharged on Eliquis, he'll qualify for home oxygen Problems and management plan were discussed with the patient and he verbalized understanding and acceptance Patient was found stable and can be discharged home in guarded prognosis however he needs follow-up as an outpatient. Patient was instructed to follow up with PCP Dr. Andersen within one week and patient agrees. Patient and were instructed to follow up mildly elevated white cell count at 15,000 and they verbalized understanding and acceptance Patient was instructed to follow up with central office trouble shooter Dr. Palmer and one week after discharge and they agree Physical exam Gen: patient is a AAOx3, no distress CVS: S1-S2, RRR, no murmur Lungs: B/L CTA, no wheezing Abdomen: soft, no distention, no tenderness, positive bowel sounds Extremity: no leg edema or induration Time spent more than 35 minutes Patient Condition at Discharge: Fair Plan - Discharge Summary Discharge Rx Participant: No New Discharge Prescriptions: New Acetaminophen Tab [Tylenol] 650 mg PO Q6HR PRN tab PRN Reason: Mild Pain Or Fever > 100.5 Omeprazole [PriLOSEC] 20 mg PO AC-BRKFST 15 Days #15 cap Albuterol Inhaler [Ventolin Hfa Inhaler] 2 puff INHALATION QID PRN 30 Days #8 gm PRN Reason: Shortness Of Breath Or Wheezing Apixaban [Eliquis] 5 mg PO DIRECTED #72 tablet Continue Ibuprofen [Motrin Ib] 800 mg PO Q6H PRN PRN Reason: Pain Or Fever > 100.5 Ondansetron Odt [Zofran ODT] 4 mg PO Q8H PRN PRN Reason: Nausea Discharge Medication List Ibuprofen [Motrin Ib] 800 mg PO Q6H PRN 11/30/23 [History] Ondansetron Odt [Zofran ODT] 4 mg PO Q8H PRN 11/30/23 [History] Acetaminophen Tab [Tylenol] 650 mg PO Q6HR PRN tab 12/03/23 [Rx] Albuterol Inhaler [Ventolin Hfa Inhaler] 2 puff INHALATION QID PRN 30 Days #8 gm 12/03/23 [Rx] Apixaban [Eliquis] 5 mg PO DIRECTED #72 tablet 12/03/23 [Rx] Omeprazole [PriLOSEC] 20 mg PO AC-BRKFST 15 Days #15 cap 12/03/23 [Rx] Follow up Appointment(s)/Referral(s): Arvin Domínguez DO [Doctor of Osteopathic Medicine] - 1 Week (Pulmonary doctor, we recommend to repeat and follow-up CT angiogram in 8-10 weeks. Office closed; please call [facility] [place] for follow up appointment.) Augustin Andersen MD [Primary Care Provider] - 1-2 days (Office closed; please call [facility] for follow up appointment. we recommend to check your blood tests including your white cell count with your doctor) Patient Instructions/Handouts: Pulmonary Embolism (DC), Influenza (DC), Using Oxygen at Home (DC) Activity/Diet/Wound Care/Special Instructions: heart healthy diet activity is restricted till you see your doctor we recommend to check your blood tests including your white cell count with your doctor Discharge Disposition: HOME SELF-CARE
== END 2023-12-03 17:02 | disposition home or self-care (01) | DRG 175 ==
LOC: EC 15:03 → 3SCARD 16:16
PROVIDERS: ADMIT Hospitalist; ATTEND Hospitalist
DX: I26.99 Other pulmonary embolism without acute cor pulmonale (principal); J10.00 Influenza due to other identified influenza virus with unspecified type of pneumonia; J96.01 Acute respiratory failure with hypoxia; J44.0 Chronic obstructive pulmonary disease with (acute) lower respiratory infection; I08.1 Rheumatic disorders of both mitral and tricuspid valves; Z11.52 Encounter for screening for COVID-19; J98.01 Acute bronchospasm; Z87.891 Personal history of nicotine dependence; Z86.010 Personal history of colon polyps; Z79.01 Long term (current) use of anticoagulants; Z86.711 Personal history of pulmonary embolism; Z87.19 Personal history of other diseases of the digestive system; Z86.16 Personal history of COVID-19
CPT/HCPCS: 71045; 80048; 83605; 83735; 84145; 85025; 85610; 85730; 87324; 87636; 93306; 94640; 94760; 96361; 96365; 96366; 96375; 99285

== ENCOUNTER → 2024-01-30 | Outpatient (CLI) | payer OTHER ==
--- NOTE | 2024-01-30 10:57 | CT ---
EXAMINATION: CTA CHEST WITH IV CONTRAST, CT PULMONARY ANGIOGRAM DATE OF EXAM: 01/30/2024 10:31 AM HISTORY: Recent PE 2 months ago. TECHNIQUE: CTA examination of the chest was performed following the intravenous administration of iod inated contrast. Sagittal, coronal and 3-D reformatted images were provided. CT dose lowering technIIIMOBI ues were used, to include: automated exposure control, adjustment for patient size, and or use of ite rative reconstruction. COMPARISON: 11/30/2023. FINDINGS: Lungs: Calcified granulomas are seen in the left lower lobe. The lungs otherwise appear clear. Pleura: Normal. Mediastinum and Deena: There are calcified bilateral hilar lymph nodes. Pulmonary Arteries: Normal. Cardiovascular: Normal. Upper Abdomen: Simple cysts are seen within the left lobe of the liver. Calcified granulomas are also seen within the spleen. The visualized upper abdomen otherwise appears unremarkable. Chest Wall: Normal. Musculoskeletal: Normal. IMPRESSION: 1. No evidence of pulmonary medicine. 2. No evidence of thoracic abdominal aortic aneurysm or dissection. 3. 3No evidence of pneumonia, pleural or pericardial effusions. 4. Evidence of prior granulomatous disease.
== END | disposition home or self-care (01) ==
LOC: RADCTMAIN 10:00
PROVIDERS: ATTEND Internal Medicine Critical Care Medicine
DX: I26.99 Other pulmonary embolism without acute cor pulmonale (principal); Z86.711 Personal history of pulmonary embolism
CPT/HCPCS: 71275; Q9967